=== PATIENT | female | born 1970 | race Caucasian/White ===

== ENCOUNTER → 2018-01-09 | Outpatient (CLI) | payer OTHER ==
[~2018-01-09] MED LIST: Ativan1 MG SL; Ferrous Sulfat325 MG PO; INSDET100 SC; INSLIS75I SC; LIRA0.6P; METF500 PO; OMEP40CA12 PO; OXYACE5T PO
== END ==
LOC: LAB 15:29 → LAB SHORT 15:29
DX: N39.0 Urinary tract infection, site not specified (principal)
CPT/HCPCS: 87077; 87086; 87186

== ENCOUNTER 2018-05-05 08:50 | Day surgery (SDC) | payer OTHER ==
[~2018-05-05] VITALS: Ht 167.6 cm; Wt 97.5 kg
[~2018-05-05 08:50] MED LIST changes: +HUMILIN; +JARDIANCE10 MG PO; +METF500C PO; +Multiple Vitam1 EACH PO; +PANT40 PO; +PROG100 PO
[2018-05-05] MEDS ORDERED: INSDET100 (09:28)
== END 2018-05-05 11:26 | disposition home or self-care (01) ==
LOC: ORSCSDS 08:50
PROVIDERS: Internal Medicine Gastroenterology
PROC: 0DJD8ZZ Inspection of Lower Intestinal Tract, Via Natural or Artificial Opening Endoscopic (ICD-10-PCS; principal; 2018-05-05 10:00)
DX: D50.9 Iron deficiency anemia, unspecified (principal); E11.9 Type 2 diabetes mellitus without complications; E78.5 Hyperlipidemia, unspecified; I10 Essential (primary) hypertension; Z98.84 Bariatric surgery status; K21.9 Gastro-esophageal reflux disease without esophagitis; F41.8 Other specified anxiety disorders; B15.9 Hepatitis A without hepatic coma; Z79.84 Long term (current) use of oral hypoglycemic drugs; Z79.899 Other long term (current) drug therapy
CPT/HCPCS: 82947; J1980; J7120

== ENCOUNTER 2024-03-29 06:30 | Day surgery (SDC) | payer OTHER ==
[~2024-03-29] VITALS: Ht 167.6 cm; Wt 90.9 kg
[2024-03-29] VITALS (15 sets, daily range): BP systolic 112–150; BP diastolic 70–88
[~2024-03-29 06:30] MED LIST changes: +JARDIANCE25 MG PO; +Lactated Ringer's 1,000 ML IV SCH; +Multivitamin1 EAC1 PO; +OZEMPIC0.25 MG/02 SQ
[2024-03-29] MEDS ORDERED: propofoL 40 ML IV ONE (07:02)
--- NOTE | 2024-03-29 07:39 | NUR ---
03/29/24 0739 Jamil Boss HISTORY, CHART, MEDICATIONS AND ALLERGIES REVIEWED BEFORE START OF PROCEDURE. PATIENT CONFIRMS NPO STATUS AND AGREES WITH SCHEDULED PROCEDURE. 3-LEAD EKG REVIEWED WITH PHYSICIAN PRIOR TO START OF PROCEDURE. MONITOR INTACT WITH CONTINUOUS PULSE OXIMETRY,CAPNOGRAPHY, 3-LEAD EKG, INTERMITTENT BP. SUPPLEMENTAL O2 TO BE TITRATED THROUGHOUT PROCEDURE TO MAINTAIN O2 SATURATION ABOVE 90%. PATIENT DETERMINED TO BE ASA APPROPRIATE FOR PROPOFOL SEDATION PRIOR TO START OF PROCEDURE BY
--- NOTE | 2024-03-29 08:01 | NUR ---
PT TO DAY SURGERY STEP DOWN FROM COLONOSCOPY; BEDSIDE REPORT RECEIVED. VSS. PT IS AWAKE, ALERT AND ORIENTED; ABLE TO MOVE SELF IN BED. PT HAS NO COMPLAINTS AT THIS TIME.
--- NOTE | 2024-03-29 08:11 | NUR ---
Discharge instructions reviewed with patient. Patient verbalizes understanding. Copy given to patient to take home. Patient States Post-Procedure ride home has been arranged.
--- NOTE | 2024-03-29 08:12 | NUR ---
TOLERATING PO FLUDIS WELL.
--- NOTE | 2024-03-29 08:24 | NUR ---
Patient up to Ambulate independently. Gait steady. Discharged via wheelchair to private car for ride home.
== END 2024-03-29 08:25 | disposition home or self-care (01) ==
LOC: ORSCMMR 06:30
PROVIDERS: Internal Medicine Gastroenterology
PROC: 0DJD8ZZ Inspection of Lower Intestinal Tract, Via Natural or Artificial Opening Endoscopic (ICD-10-PCS; principal; 2024-03-29 07:30)
DX: Z12.11 Encounter for screening for malignant neoplasm of colon (principal); Z80.0 Family history of malignant neoplasm of digestive organs; Z83.719 Family history of colon polyps, unspecified; Z98.84 Bariatric surgery status; E11.9 Type 2 diabetes mellitus without complications; E78.00 Pure hypercholesterolemia, unspecified; Z79.85 Long-term (current) use of injectable non-insulin antidiabetic drugs; Z79.84 Long term (current) use of oral hypoglycemic drugs; Z79.899 Other long term (current) drug therapy
CPT/HCPCS: 82947; J2704; J7120

== ENCOUNTER → 2025-03-15 | Outpatient (CLI) | payer OTHER ==
[~2025-03-15] MED LIST changes: -Lactated Ringer's 1,000 ML IV SCH
[2025-03-15 15:52] LABS: Creatinine, Urine Random 55.5 mg/dL (27.00-270.00); Microalb/Creat Ratio UR, Rand 12.919 mg/g (0.000-30.000); Microalbumin, Random Urine 7.17 mg/L (0.000-20.000)
== END | disposition home or self-care (01) ==
LOC: LAB SHORT 09:50 → LAB 09:50
PROVIDERS: Internal Medicine
DX: E11.42 Type 2 diabetes mellitus with diabetic polyneuropathy (principal)
CPT/HCPCS: 82043; 82570